=== PATIENT | female | born 1960 | race Caucasian/White ===

== ENCOUNTER → 2017-08-15 | Outpatient (CLI) | payer OTHER ==
[~2017-08-15] MED LIST: CALC-112 PO; COLE1TAB2 PO; DIVA500T2 PO; ERGO500017 PO; FLUO20CA19 PO; GABA-826 PO; HYDR1TAB12 PO; LEVO112T2 PO; METH500T7 PO; OXCA150T3 PO; OXCA300T3 PO; OXYC5CAP2 PO; PANT40TA5 PO; PROM25SU34 RC
== END | disposition home or self-care (01) ==
LOC: CFH 09:53
PROVIDERS: ATTEND Nurse Practitioner Primary Care
DX: Z12.31 Encounter for screening mammogram for malignant neoplasm of breast (principal); M25.531 Pain in right wrist; M25.532 Pain in left wrist; G89.29 Other chronic pain; N85.8 Other specified noninflammatory disorders of uterus; E03.9 Hypothyroidism, unspecified; E78.2 Mixed hyperlipidemia; F31.9 Bipolar disorder, unspecified; Z79.899 Other long term (current) drug therapy; Z79.890 Hormone replacement therapy; Z72.0 Tobacco use
CPT/HCPCS: 71020; 73110; 74177; G0202; Q9967

== ENCOUNTER 2018-06-30 11:18 | Emergency (ER) | payer OTHER ==
[~2018-06-30] VITALS: Ht 172.7 cm; Wt 88.5 kg
[2018-06-30] MEDS ORDERED: SODIUM CHLORIDE FLUSH 10ML SYR IVF ONE ×2 (12:00→14:30)
[2018-06-30 12:09] LABS: BASOPHILS # (AUTO) 0.04 x10^3/uL (0-0.1); BASOPHILS % (AUTO) 0 % (0-1); EOSINOPHILS # (AUTO) 0.03 x10^3/uL (0-0.4); EOSINOPHILS % (AUTO) 0 % (1-7); LYMPHOCYTES # (AUTO) 3.75 x10^3/uL (1-3.4); LYMPHOCYTES % (AUTO) 35 % (22-44); MD NO; MEAN CORPUSCULAR HEMOGLOBIN 32.1 pg (27.0-34.8); MEAN CORPUSCULAR HGB CONC 34.9 g/dL (32.4-35.8); MONOCYTES # (AUTO) 0.74 x10^3/uL (0.2-0.8); MONOCYTES % (AUTO) 7 % (2-9); NEUTROPHILS % (AUTO) 58 % (42-75); PLATELET COUNT 319 x10^3/uL (130-400); RED BLOOD COUNT 4.78 x10^6/uL (3.82-5.3); RED CELL DISTRIBUTION WIDTH 12.3 % (9.6-15.2)
[2018-06-30 12:28] LABS: ALANINE AMINOTRANSFERASE 16 U/L (12-78); ALBUMIN 3.5 g/dL (3.4-5.0); ANION GAP 7 mmol/L (5-15); CALCIUM 8.6 mg/dL (8.5-10.1); CHLORIDE 103 mmol/L (98-107); CREATININE 0.82 mg/dL (0.55-1.02)
[2018-06-30 12:30] LABS: ALKALINE PHOSPHATASE 77 U/L (45-117); BILIRUBIN,TOTAL 0.4 mg/dL (0.2-1.0); TOTAL PROTEIN 7.4 g/dL (6.4-8.2)
[2018-06-30 14:04] LABS: MICROSCOPIC INDICATED
[2018-06-30] MEDS ORDERED: SODIUM CHLORIDE 0.9% 1,000ML IVBOLUS ONE (14:30)
[2018-06-30 14:42] LABS: CULTURE INDICATED? YES
[2018-06-30] MEDS ORDERED: MORPHINE SULFATE 4 MG/ML, 1ML ONE (15:23)
[2018-06-30] MEDS ORDERED: MORPHINE SULFATE 4 MG/ML, 1ML IVPush PRN (15:30)
[2018-06-30 16:12] VITALS: BP 121/64
== END 2018-06-30 16:14 | disposition home or self-care (01) ==
LOC: ED 14:51
DX: R10.84 Generalized abdominal pain (principal); E78.00 Pure hypercholesterolemia, unspecified
CPT/HCPCS: 36415; 74177; 80053; 81001; 85025; 87086; 96374; 99285; J7030

== ENCOUNTER 2019-08-10 12:35 | Outpatient (CLI) | payer OTHER ==
[~2019-08-10 12:35] MED LIST changes: -HYDR1TAB12 PO; +HYDR1TAB13 PO
[2019-08-10] MEDS ORDERED: OXYC-293 PO (13:18)
[2019-08-10] MEDS ORDERED: FLUO20TA25 PO (13:18)
[2019-08-10] MEDS ORDERED: FAMO20TA7 PO (13:18)
[2019-08-10 13:57] LABS: BASOPHILS # (AUTO) 0.04 x10^3/uL (0-0.1); BASOPHILS % (AUTO) 1 % (0-1); EOSINOPHILS # (AUTO) 0.05 x10^3/uL (0-0.4); EOSINOPHILS % (AUTO) 1 % (1-7); LYMPHOCYTES # (AUTO) 2.76 x10^3/uL (1-3.4); LYMPHOCYTES % (AUTO) 43 % (22-44); MD NO; MEAN CORPUSCULAR HEMOGLOBIN 31.2 pg (27.0-34.8); MEAN CORPUSCULAR HGB CONC 33.7 g/dL (32.4-35.8); MEAN CORPUSCULAR VOLUME 92.6 fL (80-100); MEAN PLATELET VOLUME 7.4 fL (7.4-10.4); MONOCYTES # (AUTO) 0.56 x10^3/uL (0.2-0.8); MONOCYTES % (AUTO) 9 % (2-9); NEUTROPHILS # (AUTO) 3.08 x10^3/uL (1.8-6.8); NEUTROPHILS % (AUTO) 48 % (42-75); PLATELET COUNT 283 x10^3/uL (130-400); RED BLOOD COUNT 4.21 x10^6/uL (3.82-5.3); RED CELL DISTRIBUTION WIDTH 12.2 % (9.6-15.2)
[2019-08-10 14:07] LABS: INTERNATIONAL NORMALIZED RATIO 0.95 (0.93-1.1)
[2019-08-10 14:08] LABS: ALBUMIN 3.6 g/dL (3.4-5.0); ANION GAP 4 mmol/L (5-15); CALCIUM 8.6 mg/dL (8.5-10.1); CHLORIDE 105 mmol/L (98-107)
[2019-08-10 14:12] LABS: ALANINE AMINOTRANSFERASE 13 U/L (12-78); ALKALINE PHOSPHATASE 81 U/L (45-117); BILIRUBIN,TOTAL 0.3 mg/dL (0.2-1.0); CREATININE 0.74 mg/dL (0.55-1.02); TOTAL PROTEIN 6.9 g/dL (6.4-8.2)
[2019-08-10 14:14] LABS: MICROSCOPIC NOT IND
[2019-08-10 14:24] LABS: CULTURE INDICATED? NO
== END 2019-08-10 23:59 | disposition home or self-care (01) ==
LOC: STAR 12:35
PROVIDERS: ATTEND Neurological Surgery
DX: Z01.811 Encounter for preprocedural respiratory examination (principal); M50.30 Other cervical disc degeneration, unspecified cervical region; M54.12 Radiculopathy, cervical region; Z87.891 Personal history of nicotine dependence
CPT/HCPCS: 36415; 71046; 80053; 81003; 85025; 85610; 85730; 93005

== ENCOUNTER 2019-08-24 05:37 | Inpatient (IN) | payer OTHER ==
[~2019-08-24] VITALS: Ht 172.7 cm; Wt 87.2 kg
[~2019-08-24 05:37] MED LIST changes: +FAMO20TA7 PO; +FLUO20TA25 PO; +OXYC-293 PO
[2019-08-24 06:05] VITALS: BP 124/81
[2019-08-24] MEDS ORDERED: LACTATED RINGERS 1,000 ML IV SCH (06:08)
[2019-08-24] MEDS ORDERED: EPINEPHRINE 1 MG/ML, 1ML ONE (06:23)
[2019-08-24] MEDS ORDERED: BUPIVACAINE/PF 0.5% ONE (06:23)
[2019-08-24] MEDS ORDERED: THROMBIN 5,000 UNIT VIAL TP ONE (06:23)
[2019-08-24] MEDS ORDERED: BACITRACIN 50,000 UNIT ONE (06:23)
[2019-08-24] MEDS ORDERED: MIDAZOLAM 1 MG/ML, 2ML ONE (06:46)
[2019-08-24] MEDS ORDERED: PROPOFOL 10 MG/ML, 20ML ONE (06:46)
[2019-08-24] MEDS ORDERED: FENTANYL PF 250 MCG/5ML ONE (06:46)
[2019-08-24] MEDS ORDERED: ONDANSETRON 2MG/ML, 2ML ONE (06:49)
[2019-08-24] MEDS ORDERED: DEXAMETHASONE 4 MG/ML, 1ML ONE ×2 (06:49)
[2019-08-24] MEDS ORDERED: CEFAZOLIN 1,000 MG ONE ×2 (06:49)
[2019-08-24] MEDS ORDERED: LIDOCAINE-MPF 2% ,5ML ONE (06:49)
[2019-08-24] MEDS ORDERED: ROCURONIUM 10 MG/ML,10ML ONE (06:54)
[2019-08-24] MEDS ORDERED: ACETAMINOPHEN 500 MG TABLET PO ONE (07:00)
[2019-08-24] MEDS ORDERED: OXYcodone IR 5MG TABLET PO ONE (07:00)
[2019-08-24] MEDS ORDERED: GABAPENTIN 300 MG CAPSULE PO ONE (07:00)
[2019-08-24] MEDS ORDERED: LABETALOL 5MG/ML, 20ML IV PRN ×2 (08:00→11:00)
[2019-08-24] MEDS ORDERED: MEPERIDINE/PF 25MG/ML,1ML IVPush PRN (08:00)
[2019-08-24] MEDS ORDERED: LORazepam 2 MG/ML, 1ML IVPush PRN (08:00)
[2019-08-24] MEDS ORDERED: METOCLOPRAMIDE 5 MG/ML, 2ML IV PRN (08:00)
[2019-08-24] MEDS ORDERED: ONDANSETRON 2MG/ML, 2ML IV PRN ×2 (08:00→11:00)
[2019-08-24] MEDS ORDERED: OXYcodone 5 MG/5 ML ORAL.SOL UDC PO PRN (08:00)
[2019-08-24] MEDS ORDERED: hydrALAzine 20 MG/ML, 1ML IV PRN (08:00)
[2019-08-24] MEDS ORDERED: NEOSTIGMINE 1 MG/ML, 10ML ONE (08:18)
[2019-08-24] MEDS ORDERED: GLYCOPYRROLATE 0.2MG/1ML, 5ML ONE (08:18)
[2019-08-24] MEDS ORDERED: FENTANYL PF 100 MCG/2ML ONE (08:39)
[2019-08-24] MEDS ORDERED: HYDROmorphone 1 MG/ML, 1ML VIAL ONE (08:39)
[2019-08-24] MEDS: FENTANYL PF 100 MCG/2ML IV PRN ×2 (08:41→08:56)
[2019-08-24] MEDS: HYDROmorphone 2 MG/ML, 1ML IVPush PRN ×2 (08:45→08:52)
[2019-08-24] MEDS ORDERED: METHOCARBAMOL 1,000 MG in DEXTROSE 5% 100 ML IV ONE (09:00)
[2019-08-24] MEDS ORDERED: METHOCARBAMOL 1000MG/10 ML IV ONE (09:00)
[2019-08-24] MEDS ORDERED: HYDROcodone/APAP 5/325 TABLET PO PRN (11:00)
[2019-08-24] MEDS ORDERED: DIPHENHYDRAMINE 50 MG/ML, 1ML IVPush PRN (11:00)
[2019-08-24] MEDS ORDERED: MAGNESIUM HYDROXIDE 8%, 30ML UDC PO PRN (11:00)
[2019-08-24] MEDS ORDERED: BISACODYL 10 MG SUPP PR PRN (11:00)
[2019-08-24] MEDS ORDERED: LORazepam 1MG TABLET PO PRN (11:00)
[2019-08-24] MEDS ORDERED: PROMETHAZINE 25 MG/ML, 1ML IM PRN (11:00)
[2019-08-24] MEDS ORDERED: HYDROmorphone 2 MG/ML, 1ML IVPush PRN (11:00)
[2019-08-24 13:15] VITALS: BP 115/74
[2019-08-24] MEDS: D5%-0.9% NACL+KCL 20MEQ 1,000 ML IV SCH ×2 (14:53→21:00)
[2019-08-24] MEDS: CEFAZOLIN PMX 1GM/50ML 50 ML IVPB SCH ×2 (14:53→23:17)
[2019-08-24] MEDS: OXYcodone/APAP 5/325MG TABLET PO PRN ×2 (16:10→20:15)
[2019-08-24] MEDS: METHOCARBAMOL 750 MG in DEXTROSE 5% 100 ML IV SCH (16:10)
[2019-08-24 19:05] VITALS: BP 123/76
[2019-08-24] MEDS: FLUOXETINE HCL 20 MG CAPSULE PO SCH (20:24)
[2019-08-24] MEDS: DIVALPROEX 500 MG TABLET.DR PO SCH (20:24)
[2019-08-24] MEDS ORDERED: ZOLPIDEM 5MG TABLET PO PRN (21:00)
[2019-08-24] MEDS ORDERED: FAMOTIDINE 40 MG TABLET PO SCH (21:00)
[2019-08-25] VITALS: BP 123/71
[2019-08-25] MEDS: METHOCARBAMOL 750 MG in DEXTROSE 5% 100 ML IV SCH ×2 (00:12→07:51)
[2019-08-25] MEDS: OXYcodone/APAP 5/325MG TABLET PO PRN ×3 (00:12→12:25)
[2019-08-25 04:00] VITALS: BP 118/72
[2019-08-25] MEDS ORDERED: PANTOPROZOLE 40MG TABLET PO SCH (06:00)
[2019-08-25] MEDS ORDERED: LEVOTHYROXINE 125 MCG TABLET PO SCH (06:00)
[2019-08-25] MEDS: D5%-0.9% NACL+KCL 20MEQ 1,000 ML IV SCH (06:16)
[2019-08-25 06:40] VITALS: BP 112/68
[2019-08-25] MEDS ORDERED: DEXAMETHASONE 4 MG/ML, 1ML IVPush SCH (07:30)
[2019-08-25] MEDS: FLUOXETINE HCL 20 MG CAPSULE PO SCH (07:50)
[2019-08-25] MEDS: DIVALPROEX 500 MG TABLET.DR PO SCH (07:50)
[2019-08-25] MEDS ORDERED: SENNA/DOCUSATE TABLET PO SCH (09:00)
[2019-08-25] MEDS ORDERED: METH4TAB2 PO (12:31)
[2019-08-25 12:40] VITALS: BP 116/81
[2019-08-26] MEDS ORDERED: METHOCARBAMOL 750 MG TABLET PO SCH (16:30)
== END 2019-08-25 13:45 | disposition home or self-care (01) | DRG 473 ==
LOC: ORIP 05:37 → 4NE 10:35 → DCLOUNGE 08-25 13:28
PROVIDERS: ADMIT Neurological Surgery; ATTEND Neurological Surgery
PROC: 0RB30ZZ Excision of Cervical Vertebral Disc, Open Approach (ICD-10-PCS; 2019-08-24)
PROC: 0RG2070 Fusion of 2 or more Cervical Vertebral Joints with Autologous Tissue Substitute, Anterior Approach, Anterior Column, Open Approach (ICD-10-PCS; principal; 2019-08-24 07:00)
DX: M48.02 Spinal stenosis, cervical region (principal); M50.321 Other cervical disc degeneration at C4-C5 level; M54.12 Radiculopathy, cervical region; K21.9 Gastro-esophageal reflux disease without esophagitis; F32.9 Major depressive disorder, single episode, unspecified; E03.9 Hypothyroidism, unspecified; Z90.49 Acquired absence of other specified parts of digestive tract; Z82.49 Family history of ischemic heart disease and other diseases of the circulatory system; Z83.6 Family history of other diseases of the respiratory system; Z83.49 Family history of other endocrine, nutritional and metabolic diseases
CPT/HCPCS: 72040; J3490; S0020; C1713; G0378; J0171; J0690; J1100; J1170; J2250; J2405; J2704; J2710; J3010; C1762; J2800; J3480; J7120